=== PATIENT | female | born 1940 | race Caucasian/White ===

== ENCOUNTER → 2021-08-10 | Outpatient (CLI) | payer MEDICARE, OTHER ==
[~2021-08-10] VITALS: Ht 165.1 cm; Wt 47.7 kg
[~2021-08-10] MED LIST: AMBROTOSE; ASCO-341 PO; ASP325T PO; ASPI-84; ASPI81TA16 PO; CETI10TA17; CHOL500050 PO; CYAN1TAB68 PO; DEXT10CA2; DEXT15CA33 PO; FLC1T; FRSM10B60 PO; METH10TA3; MTX2.5T; PSEU120T53; SOLR150T PO; TRM50T PO; UBID10CA8; VIT C; VIT D
[2021-08-10 13:41] LABS: CALCIUM 9.5 MG/DL (8.5-10.1); CREATININE SERUM 0.89 MG/DL (0.60-1.30); POTASSIUM 3.6 MMOL/L (3.6-5.0)
[2021-08-10 13:43] LABS: BASOPHILS % (AUTO) 1 % (0-10); EOSINOPHILS # (AUTO) 0.1 10^3/uL (0.0-0.3); EOSINOPHILS % (AUTO) 2 % (0-10); HEMATOCRIT 43 % (35-52); HEMOGLOBIN 14.7 g/dL (11.5-16.0); LYMPHOCYTES # (AUTO) 1.1 10^3/uL (1.0-4.0); LYMPHOCYTES % (AUTO) 18 % (12-44); MEAN CORPUSCULAR HEMOGLOBIN 31 pg (25-34); MEAN CORPUSCULAR HGB CONC 34 g/dL (32-36); MEAN CORPUSCULAR VOLUME 91 fL (80-99); MEAN PLATELET VOLUME 9.9 fL (9.0-12.2); MONOCYTES # (AUTO) 0.4 10^3/uL (0.0-1.0); MONOCYTES % (AUTO) 7 % (0-12); NEUTROPHILS # (AUTO) 4.3 10^3/uL (1.8-7.8); NEUTROPHILS % (AUTO) 72 % (42-75); PLATELET COUNT 288 10^3/uL (130-400)
== END ==
LOC: PREOP 08-01 05:31
PROVIDERS: ATTEND Surgery
DX: Z01.818 Encounter for other preprocedural examination (principal)
CPT/HCPCS: 36415; 80048; 85025; 87081

== ENCOUNTER 2021-08-17 07:28 | Day surgery (SDC) | payer MEDICARE, OTHER ==
[2021-08-17] VITALS (11 sets, daily range): BP systolic 124–143; BP diastolic 78–98
[~2021-08-17] VITALS: Ht 165.1 cm; Wt 47.7 kg
[~2021-08-17 07:28] MED LIST changes: -ACHD5005 PO
[2021-08-17] MEDS: LACTATED RINGERS 1,000 ML IV PRN ×2 (08:19→10:17)
[2021-08-17] MEDS ORDERED: ceFAZolin INJECTION 1,000 MG ONE (08:46)
[2021-08-17] MEDS ORDERED: 0.9% SODIUM CHLORIDE PF INJ 20 ML VIAL ONE (08:55)
[2021-08-17] MEDS ORDERED: HEParin (CENTRAL IV FLUSH) 500 UNIT/5 ML SYR ONE (08:55)
[2021-08-17] MEDS ORDERED: LIDOCAINE/EPI 2% 1:200,00 (XYLOCAINE) 20 ML VIAL ONE (08:56)
--- NOTE | 2021-08-17 08:59 | Progress Note-Pre Operative ---
Pre-Operative Progress Note H&P Reviewed The H&P was reviewed, patient examined and no changes noted. Date Seen by Provider: Aug 17, 2021 Time Seen by Provider: 08:45 Date H&P Reviewed: Aug 17, 2021 Time H&P Reviewed: 08:45 Pre-Operative Diagnosis: Base of Tongue Mass JORDON SHIRLEY MD Aug 17, 2021 08:59
--- NOTE | 2021-08-17 08:59 | Progress Note-Pre Operative ---
Pre-Operative Progress Note H&P Reviewed The H&P was reviewed, patient examined and no changes noted. Date Seen by Provider: Aug 17, 2021 Time Seen by Provider: 08:55 Date H&P Reviewed: Aug 17, 2021 Time H&P Reviewed: 08:50 Pre-Operative Diagnosis: Squamous Cell Carcinoma EARL SALAS APRN Aug 17, 2021 08:59
[2021-08-17] MEDS ORDERED: morphine INJ 10 MG/ML 1ML (SYR OR VIAL) IVP PRN (09:00)
[2021-08-17] MEDS ORDERED: ONDANSETRON 4 MG/2 ML (SDV) Z0FRAN IVP PRN (09:00)
[2021-08-17] MEDS ORDERED: PROMETHAZINE INJ 25 MG/ML (PHENERGAN) AMP IV PRN (09:00)
[2021-08-17] MEDS ORDERED: ACETAMINOPHEN 325 MG TABLET PO PRN (09:00)
[2021-08-17] MEDS ORDERED: ACHD5005 PO (09:00)
[2021-08-17] MEDS ORDERED: HYDROcodone/APAP 5 MG/325 MG (LORTAB) TAB PO ONE (09:00)
[2021-08-17] MEDS ORDERED: HYDROcodone/APAP 5 MG/325 MG (LORTAB) TAB PO PRN (09:00)
--- NOTE | 2021-08-17 09:00 | Progress Note-Post Operative ---
Post-Operative Progess Note Surgeon (s)/Cutting Machine Operator (s) Surgeon JORDON SHIRLEY MD Cutting Machine Operator n/a Pre-Operative Diagnosis Base of Tongue Mass Post-Operative Diagnosis same Post-Op Procedure Note Date of Procedure: Aug 17, 2021 Name of Procedure Performed: Direct Laryngoscopy with Biopsy Of Base of Tongue Description & Findings Description and Findings: n/a Anesthesia Type get Estimated Blood Loss minimal Packing none. Specimen(s) collected/removed base of tongue bipsies for frozen JORDON SHIRLEY MD Aug 17, 2021 09:00
--- NOTE | 2021-08-17 09:01 | Discharge Inst-Surgical ---
D/C Lap Instructions-KIDO Reconcile Patient Problems Problems Reviewed?: Yes New, Converted, or Re-Newed RX: RX on Chart Follow Up Appt in 2 weeks Activity as tolerated No driving for 24 hours No driving while on pain medications Incentive Spirometry use every 2 hours while awake Regular Diet Symptoms to Report: Fever over 101 degree F, Nausea/Vomiting Infection Signs and Symptoms to report: Increased redness, Foul odor of wound, Increased drainage Bathing instructions: May shower Operative Area Clean/Dry; Keep incision clean/dry If any problems/questions: Contact your physician or go to Emergency Room EARL SALAS APRN Aug 17, 2021 09:01
[2021-08-17] MEDS ORDERED: fentaNYL INJ 100 MCG/2 ML AMP ONE (09:45)
[2021-08-17] MEDS: ceFAZolin INJECTION 1,000 MG VIAL IV ONE (09:54)
[2021-08-17] MEDS ORDERED: proPOfol 200 MG/20 ML (DIPRIVAN) VIAL IV ONE (09:57)
[2021-08-17] MEDS ORDERED: LIDOCAINE PF 2% 5 ML (XYLOCAINE) VIAL ONE (10:50)
[2021-08-17] MEDS ORDERED: ROCURONIUM 10 MG/ML 5 ML SYRINGE IV ONE (10:51)
[2021-08-17] MEDS ORDERED: ONDANSETRON 4 MG/2 ML (SDV) Z0FRAN ONE (10:51)
--- NOTE | 2021-08-17 10:53 | Progress Note-Post Operative ---
Post-Operative Progess Note Surgeon (s)/Radiophone Operator (s) Surgeon Dr. Osmel Adler M.D. Radiophone Operator: Colin Salas DEVELOPMENT DIRECTOR Pre-Operative Diagnosis Base of Tongue Mass, Squamous cell carcinoma Post-Operative Diagnosis Metastatic oropharyngeal squamous cell cancer, upper and lower esophageal stricture, moderate gastritis Procedure & Operative Findings Date of Procedure 08/17/21 Procedure Performed/Findings Placement of left groshong implantable port, EGD with biopsy, placement of percutaneous gastrostomy tube Anesthesia Type GET Estimated Blood Loss Estimated blood loss (mL): Minimal Specimens/Packing Specimens Removed 1) Antrum 2) GE Junction COLIN SALAS DEVELOPMENT DIRECTOR Aug 17, 2021 10:53
--- NOTE | 2021-08-17 11:13 | Diagnostic Imaging Report ---
INDICATION: Catheter placement. Fluoroscopic guidance. COMPARISON: None Total fluoroscopy time: 2 seconds Total number of fluoroscopic images saved: 1 FINDINGS: Single intraoperative image intensifier view of the chest was obtained during Groshong catheter placement. Image provided shows left-sided approach. Central tip terminates near the cavoatrial junction. Evaluation for pneumothorax is suboptimal. Please note, interpreting radiologist was not present during the procedure. IMPRESSION: 1. Fluoroscopic guidance provided during Groshong catheter placement. Dictated by: Dictated on workstation # [id number]
[2021-08-17] MEDS ORDERED: BSS 15 ML ONE (11:19)
[2021-08-17] MEDS ORDERED: SEVOFLURANE (ULTANE) 15 ML INHAL SOLN ONE (11:20)
[2021-08-17] MEDS ORDERED: GLYCOPYRROLATE 0.2 MG/ML (ROBINUL) 2 ML VIAL ONE (11:22)
[2021-08-17] MEDS ORDERED: NEOSTIGMINE 3 MG/3 ML VIAL ONE (11:22)
--- NOTE | 2021-08-17 12:02 | Diagnostic Imaging Report ---
Indication: Groshong placement. Time of Exam: 11:57 AM Left-sided Groshong catheter has tip at the SVC right atrial junction. Lungs are clear. The heart size normal. There is ectasia and tortuosity descending thoracic aorta. No pneumothorax is seen. Impression: Groshong catheter placement, as described. Dictated by: Dictated on workstation # [id number]
[2021-08-17] MEDS ORDERED: HYDROcodone/APAP 5 MG/325 MG (LORTAB) TAB ONE (13:27)
--- NOTE | 2021-08-17 14:01 | Anesthesia-General Post-Op ---
General Patient Condition Mental Status/LOC: Same as Preop Cardiovascular: Satisfactory Nausea/Vomiting: Absent Respiratory: Satisfactory Pain: Controlled Complications: Present Post Op Complications Complications None Follow Up Care/Instructions Patient Instructions None needed. Anesthesia/Patient Condition Patient Condition Patient is doing fair, stable vital signs; however, reports pain in her right eye. Right eye is noticeably red and patient attempts to keep it closed. Upon completion of the OR case, the patient's right eyelid was found open underneath the eye pad that was placed for protection. BSS was immediately used to irrigate the right eye. I provided education to the patient and her caregivers (friends) for eye to be patched and supportive measures until pain has resolved. I provided them with an extra patch and the BSS solution that we used postoperatively. Additionally I provided them with the [facility] eye care office number in case the patient felt she was getting worse. I will call to check on the patient later this evening and again tomorrow. CAPRI ORELLANA CRNA Aug 17, 2021 14:01
--- NOTE | 2021-08-17 19:07 | OPERATIVE REPORT ---
DATE OF SERVICE: 08/17/2021 ATTENDING PRIMARY CARE PHYSICIAN: Dr. Hayden Abdullahi. PREOPERATIVE DIAGNOSIS: Metastatic oropharyngeal squamous cell cancer. POSTOPERATIVE DIAGNOSIS: Metastatic oropharyngeal squamous cell cancer. PROCEDURE: Placement of left subclavian Groshong implantable catheter under fluoroscopy. EGD with biopsy and placement of percutaneous endoscopic gastrostomy tube. SURGEON: Darci Adler MD. ENTRY LEVEL: Colin Rodríguez APRN. ANESTHESIA: General endotracheal. ESTIMATED BLOOD LOSS: Minimal. FINDINGS: Both upper and lower esophageal strictures. Moderate gastritis. DISPOSITION: The patient tolerated the procedure well. INDICATIONS: The patient is a 81-year-old female, who was found to have an enlarged lymph node at the neck and she underwent biopsy, which was consistent with a squamous cell cancer. She underwent an oropharyngeal examination under anesthesia as well as biopsies and a lesion was identified at the base of the tongue, which was consistent with the source of the squamous cell cancer. In conjunction with the same procedure, we will proceed with placement of a Groshong catheter as well as a percutaneous gastrostomy tube. DESCRIPTION OF PROCEDURE: The patient was brought to the operating room, laid supine on the table. The patient first underwent the ENT procedure and biopsies as well as frozen section. The chest and neck were prepped and draped in standard surgical fashion. A 1% lidocaine with epinephrine was then used to anesthetize the overlying skin in the left subclavian region. The left subclavian vein was then cannulated with drawing of venous blood. A guidewire was then inserted under fluoroscopy. The cannulating needle removed and a skin incision made using a 15 blade. The dilator and sheath were then introduced over the guidewire and the dilator and guidewire were then removed and the Groshong catheter was placed through the sheath until the catheter tip was at the superior vena caval -- right atrial junction. The sheath was then removed. The inner wire within the catheter was then removed. The catheter cut down to size and port placed onto the catheter. The subcutaneous reservoir was then created to the anterior chest by extending the skin incision laterally. A plane between the subcutaneous fat and anterior pectoralis fascia was created using electrocautery as well as blunt dissection. Good hemostasis was observed. The port was then placed into the reservoir and sutured to the anterior pectoralis fascia using interrupted 3-0 Vicryl sutures. The subcutaneous tissue was then reapproximated using 3-0 Vicryl interrupted sutures. Skin was closed using 4-0 Monocryl running subcuticular suture. Wound was then cleaned and covered with Dermabond. The port was accessed with a non-coring Arzate needle and venous blood drawn and heparinized saline pushed in without any resistance. The endoscope was then placed in the mouth, visualizing the pharynx and hypopharyngeal region. The endoscope was then gently intubated the esophageal opening and esophagus insufflated. There was proximal esophageal stricture; however, the endoscope was able to pass through this. Distal esophageal stricture was also identified. Reflux esophagitis, Paris grade C identified. A biopsy was taken of the GE junction with forceps with visualization of good hemostasis. The endoscope was able to pass through the stricture and endoscope retroflexed visualizing no hiatal hernia. There was a moderate severity gastritis. A biopsy was taken of the antrum to rule out H. pylori. The endoscope was then advanced to the pylorus and the first and second portion of the duodenum, which appeared normal with no distal obstructions. The abdominal wall was then prepped and draped in standard surgical fashion. Skin, subcutaneous tissue, muscle layers as well as the peritoneal lining in the stomach were then anesthetized under direct visualization through the endoscope. A skin incision was made using 11 blade and the trocar and sheath were then introduced under direct visualization through the endoscope. The trocar removed and the guidewire placed and looped through the scope and pulled out the mouth. The gastrostomy tube was then placed onto the port. The gastrostomy was then pulled through with the wire and the endoscope was placed back into the stomach until the internal rubber bolster was firmly opposing the gastric wall. The external rubber bolster was placed until moderate resistance was placed allowing for apposition of the tissue layers. Antibiotic ointment was then placed onto the exit site followed by drain sponges. The tube was then cut down to size and the rubber stopper was placed on the end. The endoscope was then slowly withdrawn while taking a second look and suctioning of residual air with no additional findings. The patient tolerated the procedure well. We will get a post-procedure chest x-ray once confirmation of placement of the port and gastrostomy tube may be used at any time. Job ID: [id number] DocumentID: [id number] Dictated Date: 08/17/2021 11:29:43 Group Segment Consultant Date: 08/17/2021 19:06:31 Dictated By: DARCI ADLER MD
== END 2021-08-17 14:45 ==
LOC: SDC 07:28
PROVIDERS: ATTEND Otolaryngology Otolaryngology/Facial Plastic Surgery
DX: C01 Malignant neoplasm of base of tongue (principal); C76.0 Malignant neoplasm of head, face and neck; F17.210 Nicotine dependence, cigarettes, uncomplicated
CPT/HCPCS: 71045; 76000

== ENCOUNTER → 2021-08-17 | Outpatient (RCR) | payer MEDICARE, OTHER ==
[~2021-08-17] MED LIST changes: +ACHD5005 PO
== END | disposition home or self-care (01) ==
LOC: ONC 08-07 09:27
PROVIDERS: ATTEND Radiology Radiation Oncology
DX: C02.9 Malignant neoplasm of tongue, unspecified (principal); I25.10 Atherosclerotic heart disease of native coronary artery without angina pectoris; I10 Essential (primary) hypertension; E78.2 Mixed hyperlipidemia
CPT/HCPCS: 99204

== ENCOUNTER 2021-09-15 13:40 | Outpatient (RCR) | payer MEDICARE ==
[~2021-09-15 13:40] MED LIST changes: +ACHD5005 PO
== END 2021-09-16 | disposition home or self-care (01) ==
LOC: ONC 13:40
PROVIDERS: ATTEND Radiology Radiation Oncology
DX: Z51.0 Encounter for antineoplastic radiation therapy (principal); C02.9 Malignant neoplasm of tongue, unspecified; I25.10 Atherosclerotic heart disease of native coronary artery without angina pectoris; I10 Essential (primary) hypertension; E78.2 Mixed hyperlipidemia; J44.9 Chronic obstructive pulmonary disease, unspecified; I65.29 Occlusion and stenosis of unspecified carotid artery
CPT/HCPCS: 77300; 77301; 77334; 77336; 77338; 77386; 77470

== ENCOUNTER 2021-09-19 13:45 | Outpatient (RCR) | payer MEDICARE ==
[2021-09-20] MEDS ORDERED: TRAM50TA3 PO (15:40)
== END 2021-09-21 | disposition home or self-care (01) ==
LOC: ONC 13:45
PROVIDERS: ATTEND Radiology Radiation Oncology
DX: Z51.0 Encounter for antineoplastic radiation therapy (principal); C02.9 Malignant neoplasm of tongue, unspecified; I25.10 Atherosclerotic heart disease of native coronary artery without angina pectoris; I10 Essential (primary) hypertension; E78.2 Mixed hyperlipidemia; J44.9 Chronic obstructive pulmonary disease, unspecified; I65.29 Occlusion and stenosis of unspecified carotid artery
CPT/HCPCS: 77336; 77386

== ENCOUNTER 2021-09-20 11:45 | Inpatient (IN) | payer MEDICARE ==
[~2021-09-20] VITALS: Ht 165 cm; Wt 52.1 kg
--- NOTE | 2021-09-20 12:04 | ED Chest Pain ---
General Chief Complaint: Chest Pain Stated Complaint: CHEST PAIN Source: patient Exam Limitations: no limitations History of Present Illness Date Seen by Provider: September 20, 2021 Time Seen by Provider: 11:50 Initial Comments Patient is a 81-year-old female who presents to the emergency department today with a chief complaint of chest pain. It is believed that the chest pain actually started yesterday. The patient tells me "I had heart failure yesterday". EMS reports that when they picked her up her chest pain was at "1". 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 Currently undergoing chemo and radiation. She has a history per review of the medical record of prior stent placement back in 2000. I found this in an H&P prior to her PEG tube and port placement a few weeks ago. Patient is quite withdrawn. She does not really open her eyes to talk to me much. She is nauseous. She is bradycardic in the 40s with a blood pressure of 120 systolic. She states "I do not care" when I talked to her about going to the [facility] for definitive care. She has a family member who is Emerson LUNA, who lives in [place]. No other family or friends are immediately available for consultation regarding her history. Timing/Duration: 1-3 hours Severity/Quality: mild Location: substernal Radiation: no radiation ASA po POUND KEEPER: Yes NTG SL POUND KEEPER: No Associated Symptoms: nausea/vomiting (Nausea without vomiting) Allergies and Home Medications Allergies Coded Allergies: Penicillins (Verified Allergy, Mild, 08/17/21) erythromycin base (Verified Allergy, Mild, 08/17/21) azithromycin (Verified Allergy, Unknown, 08/17/21) Patient Home Medication List Home Medication List Reviewed: Yes Solriamfetol HCl (Sunosi) 150 Mg Tablet, 150 MG PO DAILY, (Reported) Entered as Reported by: RENNY MARTINEZ on 08/10/21 1451 Last Action: Reviewed Tramadol HCl (Tramadol HCl) 50 Mg Tablet, 50-100 MG PO Q4 -6H PRN for PAIN- MODERATE (5-7), (Reported) Entered as Reported by: PAIGE RUIZ on 09/20/21 1540 Last Action: Reviewed Discontinued Medications Ascorbic Acid/Multivit-Min (Emergen-C 1,000 mg Packet) 1,000 Mg Effpowdpkt, 1,000 MG PO DAILY, (Reported) Discontinued Reason: No Longer Taking Entered as Reported by: RENNY MARTINEZ on 08/10/211450 Last Action: Discontinued Aspirin (Low Dose Aspirin EC) 81 Mg Tablet.dr, 81 MG PO DAILY, (Reported) Discontinued Reason: No Longer Taking Entered as Reported by: RENNY MARTINEZ on 08/10/211450 Last Action: Discontinued Cholecalciferol (Vitamin D3) (Vitamin D3) 125 Mcg Capsule, 125 MCG PO DAILY, (Reported) Discontinued Reason: No Longer Taking Entered as Reported by: RENNY MARTINEZ on 08/10/211450 Last Action: Discontinued Cyanocobalamin/Folic Acid (B47-Ozyrt Acid 2500-400 Mcg Tb) Unknown Strength Tab.rapdis, Unknown Dose PO, (Reported) Discontinued Reason: No Longer Taking Entered as Reported by: RENNY MARTINEZ on 08/10/211450 Last Action: Discontinued Dextroamphetamine/Amphetamine (Dextroamp-Amphet ER 15 mg Cap) 15 Mg Cap.er.24h, 15 MG PO DAILY, (Reported) Discontinued Reason: No Longer Taking Entered as Reported by: RENNY MARTINEZ on 08/10/211450 Last Action: Discontinued Hydrocodone/Acetaminophen (Hydrocodone-Acetamin 5-325 mg) 1 Each Tablet, 1 TAB PO Q4H PRN for PAIN-MODERATE (5-7) Discontinued Reason: No Longer Taking Prescribed by: EARL SALAS on 08/17/21 0900 Last Action: Discontinued Review of Systems Review of Systems Constitutional: see HPI, malaise, weakness Respiratory: No Symptoms Reported Cardiovascular: Chest Pain Gastrointestinal: Nausea Genitourinary: No Symptoms Reported Musculoskeletal: no symptoms reported Skin: no symptoms reported Psychiatric/Neurological: No Symptoms Reported All Other Systems Reviewed Negative Unless Noted: Yes Past Wdipfxd-Sycwrj-Lijmal Hx Patient Social History Tobacco Use?: Yes Smoking Status: Current Everyday Smoker Smokeless Tobacco Frequency: Current Everyday User Substance use?: No Alcohol Use?: No Pt feels they are or have been: No Immunizations Up To Date First/Initial COVID19 Vaccinat: 07/10 Second COVID19 Vaccination Moise: 08/07 Third COVID19 Vaccination Date: 07/10 Seasonal Allergies Seasonal Allergies: Yes Past Medical History Surgery/Hospitalization HX: throat cancer Surgeries: Yes (CATARACT, STENT PLACEMENT, LIPOMAS X4, TONISLLECTOMY, TOE JOINT, EAR TUBES,) Respiratory: No Cardiac: Yes (ANGIOPLASTY, STENT X 1, RBBB) High Cholesterol, Hypertension Neurological: Yes (SEVERE NARCOLEPSY) Reproductive Disorders: No 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 oz. kg; 17.49 BMI Method: General Appearance: No Apparent Distress, Chronically ill Neck: Normal Inspection Respiratory: Lungs Clear, Normal Breath Sounds, No Accessory Muscle Use, No Respiratory Distress, Other (new port Left upper chest - bandaid overlying) Cardiovascular: Regular Rate, Rhythm (bradycardia 40's), Bradycardia Gastrointestinal: Non Tender, Soft, Other (new PEG tube in place Left abdomen) Extremity: Normal Inspection, Normal Range of Motion, Non Tender, No Calf Tenderness Neurologic/Psychiatric: Alert, Oriented x3, No Motor/Sensory Deficits, Depressed Affect Skin: Normal Color, Warm/Dry Progress/Results/Core Measures Results/Orders My Orders Orders - JIMMY BROWN MD Ekg Tracing (09/20/21 11:50) Progress Progress Note : Time: 11:59 Progress Note Discussed with Dr Chao - will be down to see Initial ECG Impression Date: September 20, 2021 Initial ECG Impression Time: 11:53 Initial ECG Rate: 44 Initial ECG Rhythm: S.Dean Initial ECG Intervals [place] interval 156 QRS [address] segment elevation noted in the inferior leads with depression in aVR and aVL. She has a hint of elevation in leads V3 and V4 as well. Departure Communication (Admissions) Time/Spoke to Consulting Phy: 11:[address] Chao Impression Primary Impression: STEMI (ST elevation myocardial infarction) Qualified Codes: I21.3 - ST elevation (STEMI) myocardial infarction of unspecified site Disposition: ADMITTED INPATIENT Condition: Critical Admissions Decision to Admit Reason: Admit from ER (General) Decision to Admit/Date: September 20, 2021 Time/Decision to Admit Time: 12:03 JIMMY BROWN MD September 20, 2021 12:04
[2021-09-20] MEDS ORDERED: NITRO DRIP 25000 MCG/D5W 0 ML IV ONE (12:06)
[2021-09-20] MEDS ORDERED: NS IV 1000 ML 1,000 ML ONE ×2 (12:06→13:34)
[2021-09-20] MEDS ORDERED: VERAPAMIL 5 MG/2 ML (CALAN) VIAL IV ONE (12:06)
[2021-09-20] MEDS ORDERED: LIDOCAINE 1% INJ 20 ML VIAL ONE (12:06)
[2021-09-20] MEDS ORDERED: HEParin (CATH LAB) 2,000 ML IV ONE (12:06)
[2021-09-20] MEDS ORDERED: HEParin 1000 UNIT/ML (10ML VIAL) FOR BOLUS ONE (12:06)
[2021-09-20] MEDS ORDERED: MIDAZOLAM 5 MG/5 ML (VERSED) VIAL ONE (12:07)
[2021-09-20] MEDS ORDERED: fentaNYL INJ 100 MCG/2 ML AMP ONE (12:07)
[2021-09-20 12:10] LABS: BASOPHILS % (AUTO) 0 % (0-10); EOSINOPHILS % (AUTO) 0 % (0-10); HEMATOCRIT 37 % (35-52); HEMOGLOBIN 12.2 g/dL (11.5-16.0); LYMPHOCYTES # (AUTO) 0.4 10^3/uL (1.0-4.0); LYMPHOCYTES % (AUTO) 6 % (12-44); MEAN CORPUSCULAR HEMOGLOBIN 31 pg (25-34); MEAN CORPUSCULAR HGB CONC 33 g/dL (32-36); MEAN CORPUSCULAR VOLUME 93 fL (80-99); MEAN PLATELET VOLUME 10.6 fL (9.0-12.2); MONOCYTES # (AUTO) 0.6 10^3/uL (0.0-1.0); MONOCYTES % (AUTO) 10 % (0-12); NEUTROPHILS # (AUTO) 5.2 10^3/uL (1.8-7.8); NEUTROPHILS % (AUTO) 83 % (42-75); PLATELET COUNT 150 10^3/uL (130-400); WHITE BLOOD COUNT 6.3 10^3/uL (4.3-11.0)
[2021-09-20 12:11] VITALS: BP 123/81
[2021-09-20 12:16] LABS: ALBUMIN 3.5 GM/DL (3.2-4.5); POTASSIUM 4.9 MMOL/L (3.6-5.0)
[2021-09-20 12:17] LABS: CALCIUM 8.6 MG/DL (8.5-10.1)
--- NOTE | 2021-09-20 12:17 | Consultation-Cardiology ---
HPI-Cardiology Cardiology Consultation: Date of Consultation 09/20/21 Date of Admission 09/20/21 Attending Physician Sushma Chao Jr., MD Admitting Physician Sushma Chao Jr., MD Consulting Physician SUSHMA CHAO JR, MD HPI: Time Seen by a Provider: 12:17 Chief Complaint: Chest pain. I had the pleasure of seeing Monik in the emergency room at [facility] in [place], [place] today. She apparently had presented to the emergency room by EMS after having called 911 due to chest pain. She does have a previous history of a stent in her left anterior descending coronary artery many years ago but has not been following with a product designer. When she arrived in the ER, an electrocardiogram showed inferior ST elevation and a code STEMI was called. When I spoke to the patient, she denied any ongoing chest pain. However, she could not tell me when the chest pain started or ended. She denied any dyspnea. She did report some nausea to the emergency room physician. The patient was quite withdrawn and would not answer many of the questions I asked even though most of them were yes or no questions. Certain portions of this document may have been dictated utilizing voice recognition technology. Inherent to this technology, typographical and grammatical errors may exist. As much as I am diligent to identify and correct these mistakes, some errors may remain in the document. Review of Systems-Cardiology Review of Systems Other comments Not readily obtainable because the patient was not answering most of my questions. All Other Systems Reviewed Negative Unless Noted: Yes GQN-[id number]-Dabugi Hx Patient Social History Smoking Status: Current Everyday Smoker 2nd Hand Smoke Exposure: No Have you traveled recently?: No Alcohol Use?: No Pt feels they are or have been: No Immunizations Up To Date Date of Influenza Vaccine: Feb 17, 2021 Past Medical History PMH As described under Assessment. Family Medical History Family Medical History: She would not provide a family history. Allergies and Home Medications Allergies Coded Allergies: Penicillins (Verified Allergy, Mild, 08/17/21) erythromycin base (Verified Allergy, Mild, 08/17/21) azithromycin (Verified Allergy, Unknown, 08/17/21) Patient Home Medication List Home Medication List Reviewed: Yes Ascorbic Acid/Multivit-Min (Emergen-C 1,000 mg Packet) 1,000 Mg Effpowdpkt, 1,000 MG PO DAILY, (Reported) Entered as Reported by: RENNY MARTINEZ on 08/10/21 145 Aspirin (Low Dose Aspirin EC) 81 Mg Tablet.dr, 81 MG PO DAILY, (Reported) Entered as Reported by: RENNY MARTINEZ on 08/10/21 145 Cholecalciferol (Vitamin D3) (Vitamin D3) 125 Mcg Capsule, 125 MCG PO DAILY, (Reported) Entered as Reported by: RENNY MARTINEZ on 08/10/21 145 Cyanocobalamin/Folic Acid (Z54-Fzvze Acid 2500-400 Mcg Tb) Unknown Strength Tab.rapdis, Unknown Dose PO, (Reported) Entered as Reported by: RENNY MARTINEZ on 08/10/21 145 Dextroamphetamine/Amphetamine (Dextroamp-Amphet ER 15 mg Cap) 15 Mg Cap.er.24h, 15 MG PO DAILY, (Reported) Entered as Reported by: RENNY MARTINEZ on 08/10/21 145 Hydrocodone/Acetaminophen (Hydrocodone-Acetamin 5-325 mg) 1 Each Tablet, 1 TAB PO Q4H PRN for PAIN-MODERATE (5-7) Prescribed by: EARL SALAS on 08/17/21 0900 Solriamfetol HCl (Sunosi) 150 Mg Tablet, 150 MG PO DAILY, (Reported) Entered as Reported by: RENNY MARTINEZ on 08/10/21 145 Exam Vital Signs Vital Signs Date Time Temp Pulse Resp B/P (MAP) Pulse Ox O2 Delivery O2 Flow Rate FiO2 09/20/21 14:48 96 Room Air 09/20/21 14:30 38 12 112/86 09/20/21 11:51 35.4 Physical Exam General: Alert. No acute distress. Well nourished and appears stated age. Eye: Extraocular movements are intact. Conjunctivae are clear. There are no xanthelasma. HENT: Normocephalic. Atraumatic. Carotid pulsations 2/2 without bruits. Neck: Jugular venous pressure does not appear elevated. No thyromegaly appreciated. Respiratory: Lungs are clear to auscultation. Respirations are non-labored. Breath sounds are equal. Symmetrical chest wall expansion. Cardiovascular: Normal rate. Regular rhythm. 2/6 systolic ejection murmur. No gallop. Point of maximal impulse is not appear displaced. Good pulses equal in all extremities. No edema. Gastrointestinal: Soft. Normal bowel sounds. There is a PEG tube in place. Skin: Skin turgor is normal. There is no pallor. Musculoskeletal: No kyphosis or scoliosis appreciated. Neurologic: Alert and oriented to person, place, time. Cranial nerves 3-12 appear grossly intact. The patient has good motor tone strength in the upper and lower extremities bilaterally. Psychiatric: Cooperative but very flat affect. Labs Laboratory Tests Test 09/20/21 11:57 Range/Units White Blood Count 6.3 4.3-11.0 10^3/uL Red Blood Count 3.92 3.80-5.11 10^6/uL Hemoglobin 12.2 11.5-16.0 g/dL Hematocrit 37 35-52 % Mean Corpuscular Volume 93 80-99 fL Mean Corpuscular Hemoglobin 31 25-34 pg Mean Corpuscular Hemoglobin Concent 33 32-36 g/dL Red Cell Distribution Width 13.7 10.0-14.5 % Platelet Count 150 130-400 10^3/uL Mean Platelet Volume 10.6 9.0-12.2 fL Immature Granulocyte % (Auto) 1 % Neutrophils (%) (Auto) 83 H 42-75 % Lymphocytes (%) (Auto) 6 L 12-44 % Monocytes (%) (Auto) 10 0-12 % Eosinophils (%) (Auto) 0 0-10 % Basophils (%) (Auto) 0 0-10 % Neutrophils # (Auto) 5.2 1.8-7.8 10^3/uL Lymphocytes # (Auto) 0.4 L 1.0-4.0 10^3/uL Monocytes # (Auto) 0.6 0.0-1.0 10^3/uL Eosinophils # (Auto) 0.0 0.0-0.3 10^3/uL Basophils # (Auto) 0.0 0.0-0.1 10^3/uL Immature Granulocyte # (Auto) 0.0 0.0-0.1 10^3/uL Neutrophils % (Manual) 74 % Lymphocytes % (Manual) 3 % Monocytes % (Manual) 11 % Band Neutrophils 11 % Reactive Lymphocytes 1 % Blood Morphology Comment NORMAL Prothrombin Time 15.2 H 12.2-14.7 SEC INR Comment 1.2 0.8-1.4 Activated Partial Thromboplast Time 28 24-35 SEC Sodium Level 134 L 135-145 MMOL/L Potassium Level 4.9 3.6-5.0 MMOL/L Chloride Level 95 L 98-107 MMOL/L Carbon Dioxide Level 17 L 21-32 MMOL/L Anion Gap 22 H 5-14 MMOL/L Blood Urea Nitrogen 43 H 7-18 MG/DL Creatinine 2.00 H 0.60-1.30 MG/DL Estimat Glomerular Filtration Rate 25 BUN/Creatinine Ratio 22 Glucose Level 163 H 70-105 MG/DL Calcium Level 8.6 8.5-10.1 MG/DL Corrected Calcium 9.0 8.5-10.1 MG/DL Magnesium Level 2.8 H 1.6-2.4 MG/DL Total Bilirubin 0.6 0.1-1.0 MG/DL Aspartate Amino Transf (AST/SGOT) 292 H 5-34 U/L Alanine Aminotransferase (ALT/SGPT) 88 H 0-55 U/L Alkaline Phosphatase 80 40-136 U/L Myoglobin 6302.9 H 10.0-92.0 NG/ML Troponin I 110.609 *H <0.028 NG/ML Total Protein 6.3 L 6.4-8.2 GM/DL Albumin 3.5 3.2-4.5 GM/DL ECG Impression ECG Comment Sinus bradycardia with inferior ST elevation. Inferior STEMI. Diagnosis/Problems Diagnosis/Problems (1) ST elevation myocardial infarction (STEMI) of inferior wall, initial episode of care Assessment & Plan: She suffered an inferior ST elevation myocardial infarction that was treated with 2 drug-eluting stents from the proximal down to the mid right coronary artery. There is residual disease in the branch vessels but due to the prolonged nature of the procedure and her acute kidney injury, I elected not to intervene on this other disease. She does also have moderate residual disease in the left coronary system. She was given ticagrelor in the [employer] following the procedure. She will be continued on aspirin and ticagrelor. I will start intensive dose statin medication. Given her bradycardia and low blood pressures at the time of her presentation, I will hold off on starting a beta-omkar at this time. (2) Acute kidney injury Assessment & Plan: She will be given vigorous hydration to help prevent contrast-induced nephrotoxicity. (3) Cancer of head, face, or neck lymph nodes, secondary Assessment & Plan: This is being managed by oncology as an outpatient. (4) Cigarette smoker Assessment & Plan: She needs to quit smoking. (5) Status post insertion of percutaneous endoscopic gastrostomy (PEG) tube Assessment & Plan: All of her oral medications will need to be given through the PEG tube. I also ordered a dietary consult to assist with ordering tube feedings. (6) DVT prophylaxis Assessment & Plan: I will start her on enoxaparin. SUSHMA CHAO JR, MD September 20, 2021 12:17
[2021-09-20 12:18] LABS: TOTAL PROTEIN 6.3 GM/DL (6.4-8.2)
--- NOTE | 2021-09-20 12:18 | Pre-Op Note & Conscious Sedat ---
Pre-Operative Progress Note H&P Reviewed The H&P was reviewed, patient examined and no changes noted. Date H&P Reviewed: September 20, 2021 Time H&P Reviewed: 12:17 Pre-Op Diagnosis: Inferior STEMI. Conscious Sedation Pre-Proced ASA Score 2 For ASA 3 and 4: Consider anesthesia and medical clearance. Also, for patients with a history of failed moderate sedation consider anesthesia. Airway Lungs Heart ASA score ASA 1: a normal healthy patient ASA 2: a patient with a mild systemic disease (mid diabetes, controlled hypertension, obesity ASA 3: a patient with a severe systemic disease that limits activity (angina, COPD, prior Myocardial infarction) ASA 4: a patient with an incapacitating disease that is a constant threat to life (CHF, renal failure) ASA 5: a moribund patient not expected to survive 24 hrs. (ruptured aneurysm) ASA 6: a declared brain- patient whose organs are being harvested. For emergent operations, add the letter E after the classification Mallampati Classification Grade 2 Sedation Plan Analgesia, Amnesia, Plan communicated to team members, Discussed options with patient/fam, Discussed risks with patient/fam The patient is an appropriate candidate to undergo the planned procedure, sedation, and anesthesia. The patient immediately re-assessed prior to indication. SUSHMA GOMES JR, MD September 20, 2021 12:18
[2021-09-20 12:20] LABS: BILIRUBIN,TOTAL 0.6 MG/DL (0.1-1.0); INR 1.2 (0.8-1.4); PROTHROMBIN TIME PATIENT 15.2 SEC (12.2-14.7)
[2021-09-20 12:23] LABS: BAND NEUTROPHILS 11 %; LYMPHOCYTES % (MANUAL) 3 %; MONOCYTES % (MANUAL) 11 %; NEUTROPHILS % (MANUAL) 74 %
[2021-09-20 12:24] LABS: RBC MORPH NORMAL; REACTIVE LYMPHOCYTES 1 %
[2021-09-20 12:25] LABS: MAGNESIUM 2.8 MG/DL (1.6-2.4)
[2021-09-20] MEDS ORDERED: TICAGRELOR 90 MG TABLET (BRILINTA) PO ONE (13:42)
[2021-09-20] MEDS: NS IV 1000 ML 1,000 ML IV SCH (13:57)
--- NOTE | 2021-09-20 14:00 | Cardiac Cath Report ---
CARDIAC CATHETERIZATION DATE OF PROCEDURE: 09/20/2021 INDICATION: Inferior STEMI. HISTORY: The patient is a 81 year old female with a known history of coronary artery disease with a previous stent in the left anterior descending coronary artery in approximately 2004. She normally follows with one of my partners but at the time she presented to the emergency room, we did not realize she had a local computer recycling worker and she told me she does not follow with a computer recycling worker. None the less, she presented to the hospital with approximately 1 day of intermittent chest pain. Her electrocardiogram showed profound inferior ST elevation as well as bradycardia. As such, a code STEMI was called. She is now referred for further evaluation with an emergency cardiac catheterization. PROCEDURES PERFORMED: 1. Left heart catheterization with hemodynamic measurements. 2. Diagnostic tonto apache coronary angiography. 3. Drug-eluting stent from the proximal down to the mid right coronary artery with 2 drug-eluting stents for the acute myocardial infarction. PROCEDURE DESCRIPTION: After verbal consent, left heart catheterization was performed through the right femoral artery utilizing a 6 Lao system by percutaneous approach. I first gained access using a micropuncture technique and then changed over to a 6 Lao sheath. I initially attempted to gain access to the right radial artery utilizing a micropuncture needle but the wire would not pass beyond a few centimeters. As such, I changed to the right f emoral artery approach. A 6 Lao JL 4 catheter was utilized to interrogate the left coronary artery and a 6 Lao JR4 guide catheter was utilized to interrogate the left ventricle, right coronary artery and for the percutaneous coronary intervention. All catheters were exchanged over a guidewire. Following the procedure, a right femoral angiogram was performed which demonstra alexandra the sheath to be entering above the bifurcation. A Mynx closure device was deployed. There was a patient related delay to first device activation due to difficult access and difficulty wiring the vessel. RESULTS: HEMODYNAMICS: Aortic pressure was 166/55 mmHg. The left ventricular pressure was 167/0 mmHg with a left ventricular end-diastolic pressure of 20 mmHg. There was no significant pressure gradient upon pullback across aortic valve. CORONARY ANGIOGRAPHY: The coronary arteries were mildly calcified, more evident in the right coronary artery. Left main coronary artery: Short but free of significant disease. Left anterior descending coronary artery: There was a stent to the mid segment which contained mild neointimal hyperplasia. There appeared to be a focal 80% stenosis just distal to the stent with JORDYN-2 flow beyond this area. There was another 80% stenosis distally and the apical portion of the vessel was severely and diffusely diseased but with a very small caliber vessel at the apex. There were odst-qo-nhacr collaterals seen filling the distal right coronary artery. Left circumflex coronary artery: There was a small first obtuse marginal branch which contained moderate diffuse disease but was approximately a 1.5 mm vessel. The second obtuse marginal branch was a moderate sized vessel which contained mild irregularities at no more than 20% stenotic. Right coronary artery: Dominant and totally occluded proximally with JORDYN 0 flow. This was the ischemia related vessel for the acute myocardial infarction. Once the vessel was open, it became apparent that both the posterior descending artery and posterolateral branch had 70% stenoses proximally with JORDYN-2 flow. However, both of these vessels were extremely tortuous and their proximal se gments. PERCUTANEOUS CORONARY INTERVENTION: Percutaneous coronary intervention was carried out from the proximal down to the distal right coronary artery through a 6 Lao JR4 guide catheter. There was great difficulty in getting a wire through the occlusion. Ultimately, I was able to cross the occlusion with a Whisper medium support guidewire. Difficulty crossing the lesion caused a patient related delay to first device activation. Once I was able to pass a wire through the proximal occlusion, I performed coronary angioplasty with a 2 x 12 mm Trek balloon up to a pressure of 8 kan for several inflations. Flow was minimally improved to the mid segment but was very difficult to visualize the distal segment of the vessel. I subsequently advanced a 1.5 mm tcmt-buy-vmtn Trek balloon over the short Whisper medium support wire. The wire was removed and contrast was injected through the kgqu-pkw-gioi balloon and the distal branches could then be visualized. The balloon appeared to be intraluminal with a possible dissection from the proximal down to the distal segment ending just proximal to the bifurcation. I then advanced a long Whisper extra-support guidewire through the balloon and performed angioplasty with the same balloon at a pressure of 10 kan for several inflations in the distal vessel. It was unclear whether or not the system was intraluminal. I then advanced a new Whi sper medium support guidewire alongside the other wire but I was able to advance this through the questionable dissection in the proximal segment that appeared to be the true lumen. However, due to heavy thrombus burden, it was unclear if what I was visualizing was dissection or just laminar flow through thrombus. The long wire and balloon were removed. I subsequently performed coronary angioplasty with the same 2 x 12 mm Trek balloon up to a pressure of 10 kan from the distal back to the proximal segment. Flow was improved at that point in time. I subsequently deployed a 3 x 38 mm drug-eluting Xience Skypoint stent in the mid-distal segment at a pressure of 16 kan. I then deployed a 3.5 x 38 mm drug-eluting Xience Skypoint stent in the proximal down to the mid segment overlapping the previous stent at a pressure of 16 kan. The overlapped segment was postdilated with the stent balloon and a pressure of 16 kan. The ostium of the vessel did not appear to require stenting. Following angioplasty and stent placement, there was 0% residual stenosis with JORDYN-3 flow. IMPRESSION: 1. Systemic hypertension with elevated left ventricular end-diastolic pressure. 2. Patent stent in the mid segment of the left anterior descending coronary artery with severe disease in several areas distal to the stent. 3. Total thrombotic occlusion of the proximal right coronary artery. This was the ischemia related to the mid vessel for the acute myocardial infarction. 4. Status post drug-eluting stent placement from the proximal down to the distal segment of the dominant right coronary artery with a 3 x 38 mm Xience Skypoint stent mid to distal and a 3.5 x 38 mm Xience Skypoint from the proximal to the mid segment with both stents overlapped with 0% residual stenosis and JORDYN-3 flow. 5. There is also moderate to severe residual disease in the proximal segments of the posterior descending artery and posterolateral branches of the right coronary artery. These edges are quite tortuous in their proximal segments and due to the prolonged nature of this procedure and the patient was getting restless, I elected not to intervene on these branches during this procedure. 5. I will obtain an echocardiogram later today to assess her left ventricular function. Certain portions of this document may have been dictated utilizing voice recognition technology. Inherent to this technology, typographical and grammatical errors may exist. As much as I am diligent to identify and correct these mistakes, some errors may remain in the document. SUSHMA GOMES JR, MD September 20, 2021 14:00
--- NOTE | 2021-09-20 15:24 | Tele-ICU Progress Note ---
Subjective Date Seen by a Provider: September 20, 2021 Time Seen by a Provider: 14:45 Subjective/Events-last exam This virtual visit was conducted using real time audio/video. Thank you for asking us to see this patient for critical illness w chestpain, STEMI and is s/p stenting. PMH: Head/neck cancer on RT/chemo. CAD w stent 2000. HL SH: smoking history: current. FH: Non-contributory ROS: as in HPI PE: VSS. HR 40 SB w 1st degree block. O2 sat 96% on RA HEENT: No obvious masses, adenopathy or JVD. Chest: clear to auscultation. CV: RRR S1 S2 No murmur or added sounds. Abd: Non-tender. Bowel sounds Y. : Unremarkable. Gutierrez Y. MOLD DESIGNER/psychiatric: Grossly intact. No obvious focal findings. Extremities: No edema. Capillary refill < 3 seconds. Skin: unremarkable. Results: Elevated trop 110, BUN 43, Creat 2.0. Decreased Na 134. CXR: clear. Available chart/ vitals / labs / images reviewed. Video assessment done using teleICU camera, rest of exam as per RN. A/P: Monitor for increasing oxygenation. Will add Duonebs PRN w current smoking history. Critical Care: critically ill patient. Cont. Discussed with EN Padilla. Asked RN to reach out to eICU if any questions or concerns later. Time spent with patient/coordination of care with other health professionals (mins): 24 Sepsis Event Evaluation Height, Weight, BMI Height: '" Weight: lbs. oz. kg; 19.00 BMI Method: Exam Exam Patient acknowledged, consented, and participated in this virtual visit which was conducted using real time audio/video Vital Signs Date Time Temp Pulse Resp B/P (MAP) Pulse Ox O2 Delivery O2 Flow Rate FiO2 09/20/21 14:48 96 Room Air 09/20/21 14:36 37 09/20/21 14:30 38 12 112/86 96 Room Air 09/20/21 12:11 45 24 123/81 95 Room Air 09/20/21 11:51 35.4 44 18 123/50 (74) 97 Height & Weight Height: '" Weight: lbs. oz. kg; 19.00 BMI Method: General Appearance: No Apparent Distress, Chronically ill Neck: Normal Inspection Respiratory: Lungs Clear, Normal Breath Sounds, No Accessory Muscle Use, No Respiratory Distress, Other (new port Left upper chest - bandaid overlying) Cardiovascular: Regular Rate, Rhythm (bradycardia 40's), Bradycardia Capillary Refill: Less Than 3 Seconds Extremity: Normal Inspection, Normal Range of Motion, Non Tender, No Calf Tenderness Neurologic/Psychiatric: Alert, Oriented x3, No Motor/Sensory Deficits, Depressed Affect Skin: Normal Color, Warm/Dry Results Lab Laboratory Tests 09/20/21 11:57 Assessment/Plan Assessment/Plan See free text. Critical Care: Critically Ill Patient FARSHAD BEARD MD September 20, 2021 15:24
[2021-09-20] MEDS ORDERED: ZOLPIDEM 5 MG (AMBIEN) TAB PO PRN (15:30)
[2021-09-20] MEDS ORDERED: ACETAMINOPHEN 500 MG TAB (TYLENOL) PO PRN (15:30)
[2021-09-20] MEDS ORDERED: RT-ALBUTEROL/IPRATROPIUM 3 ML (DUONEB) VIAL INH PRN (15:30)
[2021-09-20] MEDS ORDERED: ANTACID SUSP 30 ML UDC (MYLANTA) PO PRN (15:30)
[2021-09-20] MEDS ORDERED: TRAM50TA3 PO (15:40)
[2021-09-20] MEDS ORDERED: ENOXAPARIN INJECTION 30 MG/0.3 ML SYR SC SCH (15:45)
[2021-09-20] MEDS ORDERED: ENOXAPARIN 40 MG/0.4 ML (LOVENOX) SYR SC SCH (15:45)
[2021-09-20] MEDS ORDERED: TICAGRELOR 90 MG TABLET (BRILINTA) PO SCH (21:00)
[2021-09-20] MEDS ORDERED: ROSUVASTATIN 20 MG (CRESTOR) TABLET PO SCH (21:00)
[2021-09-20] MEDS ORDERED: LACTATED RINGERS 1,000 ML IV SCH (21:45)
[2021-09-20] MEDS ORDERED: DOPamine DRIP 250 ML IV ONE (23:51)
[2021-09-21] MEDS ORDERED: DOPamine DRIP 250 ML IV SCH
[2021-09-21] MEDS ORDERED: morphine INJ 4 MG/ML 1 ML (VIAL/SYRINGE) ONE (02:03)
[2021-09-21] MEDS ORDERED: morphine INJ 4 MG/ML 1 ML (VIAL/SYRINGE) IVP PRN (02:15)
[2021-09-21] MEDS ORDERED: LORazepam INJ 2 MG/ML (ATIVAN) VIAL IVP PRN (02:30)
[2021-09-21] MEDS ORDERED: LORazepam INJ 2 MG/ML (ATIVAN) VIAL ONE (02:33)
[2021-09-21] MEDS: morphine INJ 4 MG/ML 1 ML (VIAL/SYRINGE) IVP PRN ×2 (02:58→04:05)
[2021-09-21] MEDS ORDERED: ASPIRIN E.C. 81 MG (ECOTRIN) TAB PO SCH (09:00)
--- NOTE | 2021-09-21 10:49 | Discharge Summary ---
Diagnosis/Chief Complaint Date of Admission September 20, 2021 at 14:24 Date of Discharge September 21, 2021 at 04:09 Discharge Date: September 21, 2021 Discharge Time: 04:09 Admission Diagnosis Admission Diagnosis Inferior ST elevation myocardial infarction. Discharge Diagnosis 1. Cardiac arrest due to asystole. 2. Asystole following complete heart block due to acute inferior myocardial infarction. 3. Acute inferior ST elevation myocardial infarction. 4. Aortic stenosis and regurgitation. 5. Acute kidney injury present prior to the cardiac catheterization. 6. Right groin hematoma during this admission. 7. Head and neck carcinoma, metastatic. 8. Status post percutaneous endoscopic gastrostomy, recent but during previous hospitalization. 9. Cigarette smoker. Reason Hospital Visit Chest pain. Discharge Summary Hospital Course Was the Problem List Reviewed?: Yes Hospital Course The patient developed chest pain at home and called 911. EMS arrived and brought the patient to the hospital for further evaluation. She had apparently told to the motor lodge clerk that her family was not ready to let her . When she arrived in the emergency room, an electrocardiogram was performed that showed inferior ST elevation consistent with an inferior injury pattern. The emergency room physician had a discussion with the patient about the findings on the electrocardiogram. I spoke to the emergency room physician who states that she told the patient the treatment of choice would be a cardiac catheterization and possible percutaneous coronary intervention. However, due to the patient's recent diagnosis of head and neck cancer, the emergency room physician also told the patient that medical therapy would be an option. The patient reportedly told the emergency room physician that she wants to go ahead and have a cardiac catheterization. A code STEMI was then activated. I also spoke to the patient prior to the procedure about a cardiac catheterization although she was not all that conversant. Apparently, she does have a history of not being all that forthcoming about her symptoms. Nonetheless, I did explain to the patient the reason to have her undergo this emergency procedure and she agreed. 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 She underwent coronary angioplasty and drug- eluting stent placement from the proximal down to the distal right coronary artery with 2 drug-eluting stents. There was an excellent angiographic result although there was some residual disease in the distal branch vessels. The patient also had bradycardia prior to starting the procedure. The right femoral arterial site was closed with a Mynx closure device. The deployment was successful with good hemostasis but then the patient started moving on the cardiac catheterization table prior to being transferred to a stretcher and appeared to have dislodged the closure device and developed a right groin hematoma. Manual pressure was then held. Hemostasis was again achieved by manual pressure. She was then admitted to the intensive care unit. After few hours, she developed worsening bradycardia and intermittent type I second-degree AV block. She was started on intravenous dopamine through her implanted central venous access which had previously been placed for chemotherapy during a prior admission. Soon after starting the dopamine, she started bleeding from the right femoral arterial access site. The nurse held manual pressure. However, at that point in time, the patient was complaining of pain in her groin due to the manual pressure being held. The patient then requested that all treatment be stopped. Her wishes were honored and no further pressure was held on her groin and the dopamine and intravenous fluids were discontinued. A few hours later, the patient developed worsening heart block followed by asystole and then cardiac arrest. She was pronounced on 09/21/2021 at 04:09. Certain portions of this document may have been dictated utilizing voice recognition technology. Inherent to this technology, typographical and grammatical errors may exist. As much as I am diligent to identify and correct these mistakes, some errors may remain in the document. Labs Laboratory Tests 09/20/21 11:57: Neutrophils (%) (Auto) 83H, Lymphocytes (%) (Auto) 6L, Lymphocytes # (Auto) 0.4L , Prothrombin Time 15.2H, Sodium Level 134L, Chloride Level 95L, Carbon Dioxide Level 17L, Anion Gap 22H, Blood Urea Nitrogen 43H, Creatinine 2.00H, Glucose Level 163H, Magnesium Level 2.8H, Aspartate Amino Transf (AST/SGOT) 292H, Alanine Aminotransferase (ALT/SGPT) 88H, Myoglobin 6302.9H, Troponin I 110.609*H , Total Protein 6.3L 09/20/21 15:45: Troponin I 268.021*H, HDL Cholesterol 19L Procedures 1. Cardiac catheterization and percutaneous coronary intervention. 2. Echocardiogram. Consultations eICU. Discharge Physical Examination Allergies: Coded Allergies: Penicillins (Verified Allergy, Mild, 08/17/21) erythromycin base (Verified Allergy, Mild, 08/17/21) azithromycin (Verified Allergy, Unknown, 3/31/22) Vitals & I&Os Vital Signs Date Time Temp Pulse Resp B/P (MAP) Pulse Ox O2 Delivery O2 Flow Rate FiO2 09/21/21 02:00 78 33 102/38 90 Nasal Cannula 2.00 09/21/21 00:42 36.2 Discharge Home Medications Reviewed and agree with Discharge Medication list on patient's Discharge Instruction sheet Condition at Discharge . Instructions to Patient/Family Please see electronic discharge instructions given to patient. Clinical Quality Measures End of Life/Advance Care Plan: Advance Care discuss with: patient End of Life Care: Comfort Measures Plan: initiate discussion, clarifying prognosis, identified end-of-life goals, developed treatment plan Admission Status Admission Status: Inpatient Order (span 2 midnights) Reason for Inpatient Admission: Acute myocardial infarction. AMI/AHF: Ejection Fraction: Above/Equal to 40 ASA po Prior to arrival: Yes Comfort Measures/ Type of Care: Comfort Measures Cardiopulmonary Arrest: Asystole, Cardiac Arrest Date of : September 21, 2021 Time of : 04:09 SUSHMA GOMES JR, MD September 21, 2021 10:49
== END 2021-09-21 04:09 | disposition expired | DRG 247 ==
LOC: EDUNIT# 11:45 → ER 11:46 → SDC 12:32 → ICU 14:24
PROVIDERS: ADMIT Internal Medicine Cardiovascular Disease; ATTEND Internal Medicine Cardiovascular Disease
PROC: 027035Z Dilation of Coronary Artery, One Artery with Two Drug-eluting Intraluminal Devices, Percutaneous Approach (ICD-10-PCS; principal; 2021-09-20)
PROC: 4A023N7 Measurement of Cardiac Sampling and Pressure, Left Heart, Percutaneous Approach (ICD-10-PCS; 2021-09-20)
PROC: B2111ZZ Fluoroscopy of Multiple Coronary Arteries using Low Osmolar Contrast (ICD-10-PCS; 2021-09-20)
DX: I21.11 ST elevation (STEMI) myocardial infarction involving right coronary artery (principal); N17.9 Acute kidney failure, unspecified; C79.9 Secondary malignant neoplasm of unspecified site; L76.32 Postprocedural hematoma of skin and subcutaneous tissue following other procedure; I44.2 Atrioventricular block, complete; F17.210 Nicotine dependence, cigarettes, uncomplicated; I46.2 Cardiac arrest due to underlying cardiac condition; I35.2 Nonrheumatic aortic (valve) stenosis with insufficiency; Z66 Do not resuscitate; I44.1 Atrioventricular block, second degree; R00.1 Bradycardia, unspecified; E78.00 Pure hypercholesterolemia, unspecified; I10 Essential (primary) hypertension; G47.419 Narcolepsy without cataplexy; M19.91 Primary osteoarthritis, unspecified site; F41.9 Anxiety disorder, unspecified; Z95.5 Presence of coronary angioplasty implant and graft; Z93.1 Gastrostomy status; Z88.1 Allergy status to other antibiotic agents; Z88.0 Allergy status to penicillin
CPT/HCPCS: 36415; 80053; 80061; 83735; 83874; 84484; 85007; 85027; 85347; 85610; 85730; 93005; 93041; 93306; 93458